=== PATIENT | male | born 1950 | race Caucasian/White ===

== ENCOUNTER 2023-08-06 03:14 | Emergency (ER) | payer OTHER ==
[2023-08-06 03:26] VITALS: BMI 29.8
[2023-08-06] MEDS ORDERED: ACETAMINOPHEN 1000 MG/100 ML BAG IVPB ONE (03:49)
[2023-08-06] MEDS ORDERED: MAG HYDROX/AL HYDROX/SIMETH 30 ML UNIT-DOSE CUP PO ONE (03:49)
[2023-08-06] MEDS ORDERED: FAMOTIDINE 20 MG/50 ML IVPB 20 MG/50 ML MG IVPB ONE ×2 (03:49→03:58)
[2023-08-06] MEDS ORDERED: ACETAMINOPHEN INJECTION 100 ML IVPB ONE (03:58)
[2023-08-06] MEDS ORDERED: MAG HYDROX/AL HYDROX/SIMETH 30 ML UNIT-DOSE CUP ONE (03:58)
[2023-08-06 04:16] LABS: BASO % 0.5 % (0-2.0); EOS % 0.5 % (0-4.5); HEMATOCRIT 38.1 % (35.4-49); HEMOGLOBIN 12.9 GM/dL (11.7-16.9); LYMPH % 7.2 % (8-40); MCH 30.8 pg (25.7-33.7); MEAN CELL VOLUME 90.5 fl (80-96); MEAN PLT VOLUME 8.4 fl (7.5-11.1); MONO % 6.9 % (3.8-10.2); NEUT % 84.9 % (42.8-82.8); PLATELET COUNT 159 10^3/uL (134-434); RBC 4.21 M/mm3 (4.00-5.60); RDW 13.7 % (11.9-15.9); WHITE BLOOD COUNT 9.3 K/mm3 (4.0-10.0)
[2023-08-06 05:22] LABS: POTASSIUM 4.2 mmol/L (3.5-5.1)
[2023-08-06 05:24] LABS: CALCIUM 8.9 mg/dL (8.5-10.1)
[2023-08-06 05:25] LABS: ALBUMIN 3.8 g/dl (3.4-5.0)
[2023-08-06 05:27] LABS: CREATININE 0.9 mg/dL (0.55-1.3)
[2023-08-06 05:29] LABS: TOT PROT 7.1 g/dl (6.4-8.2)
[2023-08-06 09:34] VITALS: BP 156/73; PULSE 59; RESP 18; TEMP 98.4
== END 2023-08-06 09:57 | disposition home or self-care (01) ==
LOC: JER 03:14
PROC: 3E033GC Introduction of Other Therapeutic Substance into Peripheral Vein, Percutaneous Approach (ICD-10-PCS; principal; 2023-08-06)
PROC: 3E033NZ Introduction of Analgesics, Hypnotics, Sedatives into Peripheral Vein, Percutaneous Approach (ICD-10-PCS; 2023-08-06)
DX: R10.9 Unspecified abdominal pain (principal); K80.20 Calculus of gallbladder without cholecystitis without obstruction
CPT/HCPCS: 36415; 74177-TC; 76705-TC; 80053; 83690; 84484; 85025; 93005; 93010; 99285-25; Q9967

== ENCOUNTER 2023-09-08 04:22 | Day surgery (SDC) | payer OTHER ==
[2023-09-07 10:54] VITALS: BMI 29.8
[2023-09-08] MEDS ORDERED: BUPIVACAINE HCL/PF 0.25% (2.5MG/ML) 10 ML VIAL ONE (10:23)
[2023-09-08] MEDS ORDERED: INDOCYANINE GREEN 25 MG/10 ML VIAL IVPUSH ONE (10:23)
[2023-09-08] MEDS ORDERED: HEPARIN NA (PORCINE) 5,000 UNITS/ML 1ML VIAL ONE (10:23)
[2023-09-08] MEDS ORDERED: cefOXitin SODIUM 2 GM VIAL (RESTRICTED TO ID) IVPB ONE (10:24)
[2023-09-08] MEDS ORDERED: MIDAZOLAM HCL 2 MG/2 ML SINGLE DOSE VIAL ONE (12:48)
[2023-09-08] MEDS ORDERED: PROPOFOL 20 ML ONE (12:48)
[2023-09-08] MEDS ORDERED: SUCCINYLCHOLINE CHLORIDE 200 MG/10 ML SYRINGE ONE (12:48)
[2023-09-08] MEDS ORDERED: LIDOCAINE HCL/PF 2% SDV 5ML VIAL ONE (14:00)
[2023-09-08] MEDS ORDERED: ROCURONIUM BROMIDE 50 MG/5 ML SYRINGE ONE (14:08)
[2023-09-08] MEDS ORDERED: BUPIVACAINE HCL/PF 0.25% (2.5MG/ML) 10 ML VIAL IJ ONE (14:18)
[2023-09-08] MEDS ORDERED: HYDROmorphone HCl 2 MG/ML VIAL ONE (14:35)
[2023-09-08] MEDS ORDERED: NEOSTIGMINE METHYLSULFATE 0.5 MG/1 ML - 10 ML MDV ONE (15:10)
[2023-09-08] MEDS ORDERED: oxyCODONE HCL 5 MG TABLET ONE (17:54)
[2023-09-08 18:04] VITALS: RESP 18
[2023-09-08 18:37] VITALS: BP 135/68; PULSE 65
[2023-09-08] MEDS ORDERED: oxyCODONE HCL 5 MG TABLET PO ONE (18:45)
[2023-09-08 19:04] VITALS: TEMP 97.2
== END 2023-09-08 19:16 | disposition home or self-care (01) ==
LOC: JASU-SURG 04:22
PROVIDERS: ATTEND Surgery
PROC: 8E0W4CZ Robotic Assisted Procedure of Trunk Region, Percutaneous Endoscopic Approach (ICD-10-PCS; 2023-09-08)
PROC: 0FT44ZZ Resection of Gallbladder, Percutaneous Endoscopic Approach (ICD-10-PCS; principal; 2023-09-08 12:30)
DX: K80.20 Calculus of gallbladder without cholecystitis without obstruction (principal)
CPT/HCPCS: 47562; S2900; 82962; 88304-TC; 94760; J1644